=== PATIENT | male | born 1935 | race Caucasian/White ===

== ENCOUNTER 2016-12-01 15:18 | Emergency (ER) | payer OTHER, MEDICAID ==
[~2016-12-01] VITALS: Ht 170.2 cm; Wt 70.0 kg
[~2016-12-01 15:18] MED LIST: ASPI-1159 PO; ATOR20TA PO; LISI10TA5 PO; MELO-58 PO; METF500T4 PO; NAPR-681 PO
[2016-12-01 16:04] LABS: CHLORIDE 110 mEq/L (98-107)
[2016-12-01 16:05] LABS: INR 1.1; PROTHROMBIN TIME 11.4 sec
[2016-12-01 16:08] LABS: BASOPHILS % 0.5 % (0.0-2.0); EOSINOPHILS % 2.6 % (0.0-5.0); HEMATOCRIT. 32.5 % (42.0-52.0); HEMOGLOBIN. 11.2 g/dL (14.0-18.0); LYMPHOCYTES % 27.7 % (20.0-50.0); MEAN CORPUSCULAR HEMOGLOBIN 31.2 pg (28.0-32.0); MEAN CORPUSCULAR VOLUME 90.9 fL (80.0-94.0); MEAN PLATELET VOLUME 10.1 fl (7.4-10.4); MONOCYTES % 8.2 % (2.0-8.0); PLATELET 148 x1000/uL (130-400); RED BLOOD CELL COUNT 3.57 mill/uL (4.7-6.1); RED CELL DISTRIBUTION WIDTH 14.4 % (11.6-14.6)
[2016-12-01 16:09] LABS: CARBON DIOXIDE 26 mEq/L (21-32)
[2016-12-01 16:16] LABS: TROPONIN I < 0.02 ng/mL (0.00-0.04)
[2016-12-01 16:28] VITALS: BP 121/58
== END 2016-12-01 20:17 | disposition home or self-care (01) ==
LOC: ER 15:24
DX: K40.90 Unilateral inguinal hernia, without obstruction or gangrene, not specified as recurrent (principal); I11.9 Hypertensive heart disease without heart failure; E11.9 Type 2 diabetes mellitus without complications; I69.354 Hemiplegia and hemiparesis following cerebral infarction affecting left non-dominant side; D64.9 Anemia, unspecified; Z79.82 Long term (current) use of aspirin
CPT/HCPCS: 36415; 74176; 80053; 83690; 84484; 85025; 85610; 99285